=== PATIENT | male | born 1940 | race Caucasian/White ===

== ENCOUNTER 2020-11-07 00:41 | Inpatient (IN) | payer OTHER ==
[2020-11-07 01:05] VITALS: BMI 16.0
[2020-11-07 02:11] LABS: BASO % 1.1 % (0-2.0); EOS % 2.9 % (0-4.5); HEMATOCRIT 36.4 % (35.4-49); LYMPH % 19.4 % (8-40); MCH 28.2 pg (25.7-33.7); MEAN CELL VOLUME 85.5 fl (80-96); MEAN PLT VOLUME 9.2 fl (7.5-11.1); MONO % 8.5 % (3.8-10.2); NEUT % 68.1 % (42.8-82.8); PLATELET COUNT 201 K/MM3 (134-434); RBC 4.25 M/mm3 (4.00-5.60); RDW 17.6 % (11.9-15.9); WHITE BLOOD COUNT 6.7 K/mm3 (4.0-10.0)
[2020-11-07 02:32] LABS: CHLORIDE 106 mmol/L (98-107); SODIUM 142 mmol/L (136-145)
[2020-11-07 02:33] LABS: ALBUMIN 3.4 g/dl (3.4-5.0); ANION GAP 7 MMOL/L (8-16); BLOOD UREA NITROGEN 14.8 mg/dL (7-18); CALCIUM 8.5 mg/dL (8.5-10.1); CO2 29 mmol/L (21-32); GLUCOSE,RANDOM 101 mg/dL (74-106); MAGNESIUM 1.4 mg/dL (1.8-2.4)
[2020-11-07 02:36] LABS: CREATININE 1.1 mg/dL (0.55-1.3); SGOT/AST 15 U/L (15-37); SGPT/ALT 16 U/L (13-61)
[2020-11-07 02:38] LABS: BILIRUBIN,TOTAL 0.3 mg/dL (0.2-1); TOT PROT 6.5 g/dl (6.4-8.2)
[2020-11-07 02:39] LABS: ALK PHOS 94 U/L (45-117)
[2020-11-07] MEDS ORDERED: ACETAMINOPHEN 325 MG TABLET (FP) PO PRN (10:08)
[2020-11-07] MEDS: ESCITALOPRAM OXALATE 10 MG TABLET PO SCH (11:10)
[2020-11-07] MEDS: ASPIRIN 81 MG CHEWABLE TABLETS PO SCH (11:10)
[2020-11-07] MEDS ORDERED: ASPIRIN 81 MG CHEWABLE TABLETS ONE (11:10)
[2020-11-07] MEDS: PANTOPRAZOLE SOD 40 MG SUSPENSION PACKET PO SCH (11:10)
[2020-11-07] MEDS ORDERED: ESCITALOPRAM OXALATE 10 MG TABLET ONE (11:11)
[2020-11-07] MEDS: INSULIN (NOVOLOG) ASPART 100 UNITS/ML 10ML VIAL SQ SCH ×2 (11:24→18:14)
[2020-11-07] MEDS ORDERED: QUEtiapine FUMARATE 25 MG TABLET ONE (22:05)
[2020-11-07] MEDS ORDERED: ATORVASTATIN CA 40 MG TABLET (FP) ONE (22:05)
[2020-11-07] MEDS: QUEtiapine FUMARATE 25 MG TABLET PO SCH (22:10)
[2020-11-07] MEDS: ATORVASTATIN CA 40 MG TABLET (FP) PO SCH (22:10)
[2020-11-08] MEDS: INSULIN (NOVOLOG) ASPART 100 UNITS/ML 10ML VIAL SQ SCH ×3 (06:24→17:09)
[2020-11-08] MEDS ORDERED: ENOXAPARIN NA (PORCINE) 40 MG/0.4 ML DISP.SYRIN SQ SCH (10:00)
[2020-11-08] MEDS: CLOPIDOGREL BISULFATE 75 MG TABLET (FP) PO SCH (11:29)
[2020-11-08] MEDS: ENOXAPARIN NA (PORCINE) 40 MG/0.4 ML DISP.SYRIN SQ SCH (11:29)
[2020-11-08] MEDS: QUEtiapine FUMARATE 25 MG TABLET PO SCH ×2 (11:29→22:59)
[2020-11-08] MEDS: BACLOFEN 10 MG TABLET (FP) PO SCH (11:29)
[2020-11-08] MEDS: ESCITALOPRAM OXALATE 10 MG TABLET PO SCH (11:29)
[2020-11-08] MEDS: ASPIRIN 81 MG CHEWABLE TABLETS PO SCH (11:29)
[2020-11-08] MEDS: PANTOPRAZOLE SOD 40 MG SUSPENSION PACKET PO SCH (11:29)
[2020-11-08] MEDS: EZETIMIBE 10 MG TABLET (FP) PO SCH (11:30)
[2020-11-08] MEDS ORDERED: LORazepam 2 MG/ML SDV VIAL IVPUSH ONE (16:08)
[2020-11-08] MEDS: ATORVASTATIN CA 40 MG TABLET (FP) PO SCH (22:59)
[2020-11-09] MEDS: ATORVASTATIN CA 40 MG TABLET (FP) PO SCH (02:25)
[2020-11-09] MEDS ORDERED: QUEtiapine FUMARATE 25 MG TABLET PO ONE (02:52)
[2020-11-09] MEDS: INSULIN (NOVOLOG) ASPART 100 UNITS/ML 10ML VIAL SQ SCH (06:31)
[2020-11-09] MEDS: PANTOPRAZOLE SOD 40 MG SUSPENSION PACKET PO SCH (10:28)
[2020-11-09] MEDS: ESCITALOPRAM OXALATE 10 MG TABLET PO SCH (10:28)
[2020-11-09] MEDS: BACLOFEN 10 MG TABLET (FP) PO SCH (10:28)
[2020-11-09] MEDS: QUEtiapine FUMARATE 25 MG TABLET PO SCH (10:28)
[2020-11-09] MEDS: CLOPIDOGREL BISULFATE 75 MG TABLET (FP) PO SCH (10:28)
[2020-11-09] MEDS: EZETIMIBE 10 MG TABLET (FP) PO SCH (10:29)
[2020-11-09] MEDS: ASPIRIN 81 MG CHEWABLE TABLETS PO SCH (10:29)
[2020-11-09] MEDS: ENOXAPARIN NA (PORCINE) 40 MG/0.4 ML DISP.SYRIN SQ SCH (10:43)
[2020-11-09 11:40] VITALS: BP 128/82; PULSE 78; TEMP 97
== END 2020-11-09 11:52 | DRG 56 ==
LOC: JER 00:41 → JERBED 06:35 → J4W 23:14
PROVIDERS: ADMIT Family Medicine; ATTEND Family Medicine
DX: I69.918 Other symptoms and signs involving cognitive functions following unspecified cerebrovascular disease (principal); I61.4 Nontraumatic intracerebral hemorrhage in cerebellum; E44.0 Moderate protein-calorie malnutrition; R64 Cachexia; Z68.1 Body mass index [BMI] 19.9 or less, adult; F03.91 Unspecified dementia, unspecified severity, with behavioral disturbance; R41.82 Altered mental status, unspecified; I10 Essential (primary) hypertension; E78.5 Hyperlipidemia, unspecified; Z85.46 Personal history of malignant neoplasm of prostate
CPT/HCPCS: 36415; 70450-TC; 70551-TC; 71045-TC-FY; 80053; 82962; 83735; 84484; 85025; 93005; 93010; 97116-GP; 97161-GP; 99285-25; C9803; J0475; U0003

== ENCOUNTER 2021-03-27 14:29 | Inpatient (IN) | payer OTHER ==
[2021-03-27 16:19] LABS: BASO % 0.8 % (0-2.0); EOS % 1.4 % (0-4.5); HEMOGLOBIN 11.5 GM/dL (11.7-16.9); LYMPH % 14.5 % (8-40); MCH 27.2 pg (25.7-33.7); MCHC 32.8 g/dl (32.0-35.9); MEAN CELL VOLUME 82.9 fl (80-96); MEAN PLT VOLUME 9.5 fl (7.5-11.1); MONO % 8.2 % (3.8-10.2); NEUT % 75.1 % (42.8-82.8); PLATELET COUNT 305 K/MM3 (134-434); RBC 4.23 M/mm3 (4.00-5.60); RDW 15.4 % (11.9-15.9); WHITE BLOOD COUNT 9.6 K/mm3 (4.0-10.0)
[2021-03-27 16:21] LABS: EPI CELLS >36 /uL (0-25.1); HYALINE CASTS 4 /uL (0-3.1); PH,URINE 5.5 (5.0-8.0); URINE APPEARANCE CLEAR; URINE BACTERIA 121 /uL (0-1359); URINE BILIRUBIN NEGATIVE (NEGATIVE); URINE COLOR YELLOW; URINE GLUCOSE (UA) NEGATIVE (NEGATIVE); URINE KETONE TRACE (NEGATIVE); URINE LEUK ESTERASE NEGATIVE (NEGATIVE); URINE NITRITE NEGATIVE (NEGATIVE); URINE PROTEIN 1+ (NEGATIVE); URINE RBC 263 /uL (0-23.9); URINE WBC 19 /uL (0-25.8)
[2021-03-27 16:41] LABS: CHLORIDE 106 mmol/L (98-107); SODIUM 141 mmol/L (136-145)
[2021-03-27 16:44] LABS: CALCIUM 8.3 mg/dL (8.5-10.1)
[2021-03-27 16:45] LABS: ALBUMIN 3.5 g/dl (3.4-5.0); ANION GAP 8 MMOL/L (8-16); BLOOD UREA NITROGEN 14.2 mg/dL (7-18); CO2 27 mmol/L (21-32)
[2021-03-27 16:46] LABS: GLUCOSE,RANDOM 120 mg/dL (74-106)
[2021-03-27 16:48] LABS: CREATININE 1.1 mg/dL (0.55-1.3); PHOSPHOROUS 2.6 mg/dL (2.5-4.9); SGOT/AST 29 U/L (15-37); SGPT/ALT 21 U/L (13-61)
[2021-03-27 16:49] LABS: BILIRUBIN,TOTAL 0.7 mg/dL (0.2-1)
[2021-03-27 16:50] LABS: TOT PROT 7.2 g/dl (6.4-8.2)
[2021-03-27 16:51] LABS: ALK PHOS 120 U/L (45-117)
[2021-03-27] MEDS ORDERED: MAGNESIUM SULF 50% (8.12 MEQ/2 ML-1 GM VIAL) IVPB ONE (16:53)
[2021-03-27] MEDS ORDERED: MAGNESIUM SULFATE IN WATER 2 GM/50 ML IVPB IVPB ONE ×2 (17:04→18:34)
[2021-03-27 17:18] LABS: LACTIC ACID 4.8 mmol/L (0.4-2.0)
[2021-03-27] MEDS ORDERED: CEFTRIAXONE 1,000 MG in DEXTROSE 5%-WATER - 50 ML IVPB ONE (17:18)
[2021-03-27] MEDS ORDERED: MIDAZOLAM HCL 5 MG/1 ML Single Dose Vial IVPUSH ONE (17:35)
[2021-03-27] MEDS ORDERED: SODIUM CHLORIDE 0.9% 500 ML INFUS.BAG IV ONE ×2 (17:37→18:14)
[2021-03-27] MEDS ORDERED: MIDAZOLAM HCL 2 MG/2 ML SINGLE DOSE VIAL ONE (17:43)
[2021-03-27] MEDS ORDERED: CEFTRIAXONE 1 GM/50 ML BAG ONE (18:28)
[2021-03-27 22:29] LABS: VENOUS BASE EXCESS 2.7 mmol/L (-2-2); VENOUS PCO2 52.3 mmHg (38-52); VENOUS PH 7.361 (7.310-7.410)
[2021-03-27 22:45] LABS: CALCIUM 7.7 mg/dL (8.5-10.1)
[2021-03-27 22:46] LABS: BLOOD UREA NITROGEN 13.2 mg/dL (7-18)
[2021-03-27 22:49] LABS: CREATININE 0.8 mg/dL (0.55-1.3)
[2021-03-28] MEDS: KCL 10 MEQ IVPB 10 MEQ/100 ML INFUS.BAG IVPB SCH ×3 (04:20→06:44)
[2021-03-28 06:29] LABS: BASO % 1.1 % (0-2.0); EOS % 1.1 % (0-4.5); HEMATOCRIT 31.9 % (35.4-49); HEMOGLOBIN 10.8 GM/dL (11.7-16.9); LYMPH % 17.8 % (8-40); MCH 27.6 pg (25.7-33.7); MCHC 33.8 g/dl (32.0-35.9); MEAN CELL VOLUME 81.6 fl (80-96); MEAN PLT VOLUME 8.6 fl (7.5-11.1); MONO % 9.1 % (3.8-10.2); NEUT % 70.9 % (42.8-82.8); PLATELET COUNT 260 K/MM3 (134-434); RBC 3.92 M/mm3 (4.00-5.60); WHITE BLOOD COUNT 6.5 K/mm3 (4.0-10.0)
[2021-03-28 07:02] LABS: CHLORIDE 107 mmol/L (98-107); SODIUM 142 mmol/L (136-145)
[2021-03-28 07:06] LABS: ALBUMIN 3.1 g/dl (3.4-5.0); ANION GAP 7 MMOL/L (8-16); BLOOD UREA NITROGEN 9.2 mg/dL (7-18); CALCIUM 7.5 mg/dL (8.5-10.1); CO2 27 mmol/L (21-32); GLUCOSE,RANDOM 131 mg/dL (74-106); MAGNESIUM 1.5 mg/dL (1.8-2.4)
[2021-03-28 07:09] LABS: CREATININE 0.7 mg/dL (0.55-1.3); SGOT/AST 11 U/L (15-37); SGPT/ALT 16 U/L (13-61)
[2021-03-28 07:11] LABS: BILIRUBIN,TOTAL 0.6 mg/dL (0.2-1); TOT PROT 6.2 g/dl (6.4-8.2)
[2021-03-28 07:15] LABS: ALK PHOS 90 U/L (45-117)
[2021-03-28] MEDS ORDERED: ACETAMINOPHEN 325 MG TABLET (FP) PO PRN (10:41)
[2021-03-28] MEDS ORDERED: KCL 10 MEQ IVPB 10 MEQ/100 ML INFUS.BAG IVPB SCH (10:45)
[2021-03-28] MEDS: POTASSIUM CHLORIDE TABS 10 MEQ TABLET.ER (FP) PO SCH (12:19)
[2021-03-28] MEDS: SODIUM CHLORIDE 1,000 ML IV SCH (12:20)
[2021-03-28] MEDS ORDERED: OLANZapine 5 MG TABLET PO ONE (12:46)
[2021-03-28] MEDS: CLOPIDOGREL BISULFATE 75 MG TABLET (FP) PO SCH (14:05)
[2021-03-28] MEDS: ASPIRIN 81 MG CHEWABLE TABLETS PO SCH (14:05)
[2021-03-28] MEDS ORDERED: QUEtiapine FUMARATE 25 MG TABLET PO SCH (22:00)
[2021-03-29 07:09] LABS: BASO % 0.6 % (0-2.0); EOS % 0.3 % (0-4.5); HEMATOCRIT 32.4 % (35.4-49); MCH 27.6 pg (25.7-33.7); MEAN CELL VOLUME 81.3 fl (80-96); MEAN PLT VOLUME 9.1 fl (7.5-11.1); MONO % 7.3 % (3.8-10.2); NEUT % 78.8 % (42.8-82.8); PLATELET COUNT 293 K/MM3 (134-434); RBC 3.98 M/mm3 (4.00-5.60); RDW 15.6 % (11.9-15.9); WHITE BLOOD COUNT 9.1 K/mm3 (4.0-10.0)
[2021-03-29 07:46] LABS: CALCIUM 7.9 mg/dL (8.5-10.1)
[2021-03-29 07:47] LABS: BLOOD UREA NITROGEN 10.3 mg/dL (7-18); MAGNESIUM 1.4 mg/dL (1.8-2.4)
[2021-03-29 07:50] LABS: CREATININE 0.7 mg/dL (0.55-1.3)
[2021-03-29] MEDS: ESCITALOPRAM OXALATE 10 MG TABLET PO SCH ×2 (10:34→15:24)
[2021-03-29] MEDS: ASPIRIN 81 MG CHEWABLE TABLETS PO SCH ×2 (10:34→15:23)
[2021-03-29] MEDS: CLOPIDOGREL BISULFATE 75 MG TABLET (FP) PO SCH ×2 (10:34→15:24)
[2021-03-29] MEDS: PANTOPRAZOLE 40 MG TABLET PO SCH ×2 (10:34→15:24)
[2021-03-29] MEDS: POTASSIUM CHLORIDE TABS 10 MEQ TABLET.ER (FP) PO SCH ×2 (10:35→15:23)
[2021-03-29] MEDS: SODIUM CHLORIDE 1,000 ML IV SCH (13:00)
[2021-03-29] MEDS ORDERED: POTASSIUM CHLORIDE TABS 10 MEQ TABLET.ER (FP) PO ONE (14:34)
[2021-03-29] MEDS ORDERED: MAGNESIUM SULF 50% (8.12 MEQ/2 ML-1 GM VIAL) IVPB ONE (14:38)
[2021-03-29] MEDS ORDERED: METOPROLOL TARTRATE 5 MG/5 ML VIAL IVPUSH PRN (17:55)
[2021-03-29] MEDS ORDERED: LORazepam 2 MG/ML SDV VIAL IVPUSH PRN (19:45)
[2021-03-29] MEDS: OLANZapine 5 MG TABLET PO SCH (21:14)
[2021-03-29] MEDS: MAGNESIUM OXIDE 400 MG TABLET (FP) PO SCH (21:14)
[2021-03-29] MEDS: levETIRAcetam 500 MG/5 ML INJECTION VIAL IVPB SCH (21:14)
[2021-03-30 07:20] LABS: BLOOD UREA NITROGEN 7.7 mg/dL (7-18); CALCIUM 7.9 mg/dL (8.5-10.1)
[2021-03-30 07:21] LABS: ALBUMIN 3.2 g/dl (3.4-5.0)
[2021-03-30 07:25] LABS: BILIRUBIN,TOTAL 0.8 mg/dL (0.2-1); CREATININE 0.7 mg/dL (0.55-1.3); TOT PROT 6.4 g/dl (6.4-8.2)
[2021-03-30] MEDS: POTASSIUM CHLORIDE TABS 10 MEQ TABLET.ER (FP) PO SCH (10:24)
[2021-03-30] MEDS: MAGNESIUM OXIDE 400 MG TABLET (FP) PO SCH ×2 (10:24→22:35)
[2021-03-30] MEDS: ASPIRIN 81 MG CHEWABLE TABLETS PO SCH (10:24)
[2021-03-30] MEDS: CLOPIDOGREL BISULFATE 75 MG TABLET (FP) PO SCH (10:24)
[2021-03-30] MEDS: ESCITALOPRAM OXALATE 10 MG TABLET PO SCH (10:24)
[2021-03-30] MEDS: PANTOPRAZOLE SODIUM 40 MG VIAL IVPUSH SCH (10:25)
[2021-03-30] MEDS: levETIRAcetam 500 MG/5 ML INJECTION VIAL IVPB SCH ×2 (10:26→22:34)
[2021-03-30] MEDS: OLANZapine 5 MG TABLET PO SCH (22:35)
[2021-03-31 08:04] LABS: ALBUMIN 3.4 g/dl (3.4-5.0); BLOOD UREA NITROGEN 11.5 mg/dL (7-18); CALCIUM 8.8 mg/dL (8.5-10.1)
[2021-03-31 08:08] LABS: BILIRUBIN,TOTAL 0.7 mg/dL (0.2-1); CREATININE 0.8 mg/dL (0.55-1.3)
[2021-03-31] MEDS: POTASSIUM CHLORIDE TABS 10 MEQ TABLET.ER (FP) PO SCH (10:07)
[2021-03-31] MEDS: ESCITALOPRAM OXALATE 10 MG TABLET PO SCH (10:07)
[2021-03-31] MEDS: MAGNESIUM OXIDE 400 MG TABLET (FP) PO SCH ×2 (10:07→21:11)
[2021-03-31] MEDS: levETIRAcetam 500 MG/5 ML INJECTION VIAL IVPB SCH ×2 (10:08→21:11)
[2021-03-31] MEDS: ASPIRIN 81 MG CHEWABLE TABLETS PO SCH (10:08)
[2021-03-31] MEDS: CLOPIDOGREL BISULFATE 75 MG TABLET (FP) PO SCH (10:08)
[2021-03-31] MEDS: PANTOPRAZOLE SODIUM 40 MG VIAL IVPUSH SCH (10:09)
[2021-03-31] MEDS: OLANZapine 5 MG TABLET PO SCH (21:11)
[2021-04-01] MEDS: MAGNESIUM OXIDE 400 MG TABLET (FP) PO SCH ×2 (10:25→21:31)
[2021-04-01] MEDS: CLOPIDOGREL BISULFATE 75 MG TABLET (FP) PO SCH (10:25)
[2021-04-01] MEDS: ESCITALOPRAM OXALATE 10 MG TABLET PO SCH (10:25)
[2021-04-01] MEDS: ASPIRIN 81 MG CHEWABLE TABLETS PO SCH (10:25)
[2021-04-01] MEDS: PANTOPRAZOLE SODIUM 40 MG VIAL IVPUSH SCH (10:26)
[2021-04-01] MEDS: POTASSIUM CHLORIDE TABS 10 MEQ TABLET.ER (FP) PO SCH (10:26)
[2021-04-01] MEDS: levETIRAcetam 500 MG/5 ML INJECTION VIAL IVPB SCH ×2 (10:26→21:30)
[2021-04-01 15:56] VITALS: BMI 17.4
[2021-04-01] MEDS: OLANZapine 5 MG TABLET PO SCH (21:31)
[2021-04-02] MEDS: POTASSIUM CHLORIDE TABS 10 MEQ TABLET.ER (FP) PO SCH (10:00)
[2021-04-02] MEDS: CLOPIDOGREL BISULFATE 75 MG TABLET (FP) PO SCH (10:00)
[2021-04-02] MEDS: MAGNESIUM OXIDE 400 MG TABLET (FP) PO SCH (10:01)
[2021-04-02] MEDS: ASPIRIN 81 MG CHEWABLE TABLETS PO SCH (10:01)
[2021-04-02] MEDS: levETIRAcetam 500 MG/5 ML INJECTION VIAL IVPB SCH (10:01)
[2021-04-02] MEDS: ESCITALOPRAM OXALATE 10 MG TABLET PO SCH (10:01)
[2021-04-02] MEDS: PANTOPRAZOLE SODIUM 40 MG VIAL IVPUSH SCH (10:03)
[2021-04-02 13:35] VITALS: BP 119/65; PULSE 87; TEMP 98.3
== END 2021-04-02 17:54 | DRG 884 ==
LOC: JER 14:29 → JERBED 19:03 → J4S 03-28 01:20
PROVIDERS: ADMIT Hospitalist; ATTEND Family Medicine
DX: F01.51 Vascular dementia, unspecified severity, with behavioral disturbance (principal); G93.41 Metabolic encephalopathy; E87.2 Acidosis; E44.0 Moderate protein-calorie malnutrition; R64 Cachexia; N39.0 Urinary tract infection, site not specified; Z68.1 Body mass index [BMI] 19.9 or less, adult; N40.0 Benign prostatic hyperplasia without lower urinary tract symptoms; I10 Essential (primary) hypertension; E83.42 Hypomagnesemia; E87.6 Hypokalemia; Z85.46 Personal history of malignant neoplasm of prostate; R62.7 Adult failure to thrive; R56.9 Unspecified convulsions; E78.5 Hyperlipidemia, unspecified; E11.9 Type 2 diabetes mellitus without complications
CPT/HCPCS: 36415; 70450-TC; 71045-TC-FY; 72125-TC; 73560-TC-RT-FY; 80048; 80053; 81003; 82550; 82553; 82803; 83605; 83735; 84100; 84443; 84484; 85025; 87040; 87086; 93005; 93010; 95816; 97116-GP; 97161-GP; 99285-25; C9803; U0003; U0005

== ENCOUNTER 2021-04-18 20:54 | Emergency (ER) | payer OTHER ==
[2021-04-18 21:00] VITALS: BP 122/62; PULSE 89; TEMP 97.9; BMI 23.3
[2021-04-18] MEDS ORDERED: LIDOCAINE 5% TOPICAL PATCH TP ONE (23:11)
[2021-04-18] MEDS ORDERED: LIDOCAINE 5% TOPICAL PATCH ONE (23:12)
[2021-04-19] MEDS ORDERED: LIDOCAINE PATCH REMOVAL MC ONE (11:00)
== END 2021-04-19 04:14 ==
LOC: JER 20:54
DX: M54.2 Cervicalgia (principal)
CPT/HCPCS: 70450-TC; 72125-TC; 99284-25